=== PATIENT | female | born 1955 | race Caucasian/White ===

== ENCOUNTER 2020-10-01 07:46 | Outpatient (CLI) | payer MEDICARE, BC | END 2020-10-01 07:47 | disposition home or self-care (01) | LOC: CSHULT 07:46 | PROVIDERS: ATTEND Internal Medicine Gastroenterology | DX: K52.9 Noninfective gastroenteritis and colitis, unspecified (principal); D69.6 Thrombocytopenia, unspecified; R10.9 Unspecified abdominal pain; Z80.0 Family history of malignant neoplasm of digestive organs; K76.9 Liver disease, unspecified | CPT/HCPCS: 76705 ==

== ENCOUNTER 2021-02-21 19:27 | Emergency (ER) | payer BC, MEDICARE ==
[2021-02-21] MEDS ORDERED: Ondansetron PF 4 MG/2 ML Vial ONE (20:13)
[2021-02-21] MEDS ORDERED: Ketorolac Tromethamine 30 MG/ML VIAL ONE (20:27)
[2021-02-21 20:48] LABS: #Monocytes 0.6 10x3/uL (0.0-1.1); %Basophils 0.3 % (0.0-2.0); %Eosinophils 0.3 % (0.0-6.0); %Lymphocytes 11.9 % (18.0-47.0); %Monocytes 5.9 % (0.0-10.0); Hemoglobin 12.1 g/dL (12.0-15.5); Mean Corpuscular HGB CONC 33.4 g/dL (32.0-36.0); Mean Corpuscular Hemoglobin 30.9 pg (27.0-33.0); Mean Corpuscular Volume 92.3 fl (81.6-98.3); Platelet Count 116 10x3/uL (150-450); RBC Distribution Width 12.2 % (11.5-14.5); Red Blood Cell (RBC) Count 3.92 10x6/uL (3.90-5.03); White Blood Cell (WBC) Count 9.9 10x3/uL (3.5-10.5)
[2021-02-21 20:52] LABS: Anion Gap 15 mmol/L (10-20); BUN (Urea Nitrogen) 14 mg/dL (9.8-20.1); Calc. Creatinine Clearance 0 mL/min (70-130); Carbon Dioxide 21 mmol/L (23-31); Chloride 102 mmol/L (98-107); Potassium 4.2 mmol/L (3.5-5.1); Sodium 134 mmol/L (136-145)
[2021-02-21 20:53] LABS: ALT (SGPT) 34 U/L (8-55); AST (SGOT) 26 U/L (5-34); Albumin 4.3 g/dL (3.4-4.8); Alkaline Phosphatase 73 U/L (40-110); Bilirubin, Total 1.2 mg/dL (0.2-1.2); Calcium 10.2 mg/dL (7.8-10.44); Globulin 4.1 g/dL (2.4-3.5); Glucose 143 mg/dL (80-115); Lipase 9 U/L (8-78); Protein, Total 8.4 g/dL (5.8-8.1)
[2021-02-21 21:21] LABS: Bilirubin Neg (Negative); Blood, Urine 10 (Negative); Clarity Clear (Clear); Glucose, Urine (Dipstick) Normal (Negative); Ketone, Urine Negative (Negative); Leukocyte 25 (Negative); Nitrite Negative (Negative); Protein, Urine (Dipstick) 30 mg/dl (Neg-Trace); Urobilinogen Normal mg/dL (Less than 2)
[2021-02-21 21:45] LABS: RBC/HPF 0-3 HPF (0-3)
[2021-02-21 21:46] LABS: Bacteria/HPF Rare-Few HPF (None Seen)
[2021-02-22] MEDS ORDERED: metroNIDAZOLE 500 MG TAB ONE (00:13)
[2021-02-22] MEDS ORDERED: Ciprofloxacin 500 MG TAB ONE (00:14)
== END 2021-02-22 00:20 | disposition home or self-care (01) ==
LOC: CSHERS 19:27
DX: K57.32 Diverticulitis of large intestine without perforation or abscess without bleeding (principal); E11.9 Type 2 diabetes mellitus without complications; I10 Essential (primary) hypertension; Z79.899 Other long term (current) drug therapy
CPT/HCPCS: 74177; 80053; 81003; 81015; 83690; 85025; 96374; 96375; J1885; J2405

== ENCOUNTER 2022-02-10 09:09 | Outpatient (CLI) | payer BC, MEDICARE | END 2022-02-10 09:10 | disposition home or self-care (01) | LOC: CSHCT 09:09 | PROVIDERS: ATTEND Physician Assistant Medical | DX: K52.9 Noninfective gastroenteritis and colitis, unspecified (principal); K76.0 Fatty (change of) liver, not elsewhere classified; K57.30 Diverticulosis of large intestine without perforation or abscess without bleeding; I70.90 Unspecified atherosclerosis; Z87.19 Personal history of other diseases of the digestive system | CPT/HCPCS: 74176 ==